=== PATIENT | male | born 1970 | race African-American/Black ===

== ENCOUNTER 2020-04-25 17:37 | Emergency (ER) | payer MEDICAID, OTHER ==
[~2020-04-25] VITALS: Ht 182.9 cm; Wt 78.0 kg
[~2020-04-25 17:37] MED LIST: ABIL5 MT
[2020-04-25 18:41] LABS: BASOPHILS % 0.3 % (0.0-2.0); EOSINOPHILS % 0.9 % (0.0-5.0); HEMATOCRIT. 36.4 % (42.0-52.0); HEMOGLOBIN. 12.7 g/dL (14.0-18.0); LYMPHOCYTES % 25.6 % (20.0-50.0); MEAN CORPUSCULAR HEMOGLOBIN 30.9 pg (28.0-32.0); MEAN CORPUSCULAR VOLUME 88.8 fL (80.0-94.0); MEAN PLATELET VOLUME 7.1 fl (7.4-10.4); MONOCYTES % 7.8 % (2.0-8.0); NEUTROPHILS % 65.4 % (40.0-76.0); PLATELET 354 x1000/uL (130-400); RED CELL DISTRIBUTION WIDTH 15.1 % (11.6-14.6)
[2020-04-25 18:47] LABS: CHLORIDE 104 mEq/L (98-107)
[2020-04-25 20:43] VITALS: BP 135/82
== END 2020-04-25 20:56 | disposition home or self-care (01) ==
LOC: ER 17:37
DX: R07.89 Other chest pain (principal); R03.0 Elevated blood-pressure reading, without diagnosis of hypertension
CPT/HCPCS: 36415; 71045; 80053; 83880; 84484; 85025; 93005; 99285

== ENCOUNTER 2023-07-19 10:16 | Emergency (ER) | payer MEDICAID ==
[~2023-07-19] VITALS: Ht 172.7 cm; Wt 88.6 kg
[~2023-07-19 10:16] MED LIST changes: +IBUP-2029 MT
[2023-07-19 10:39] VITALS: O2SAT 98
[2023-07-19 14:15] VITALS: BP 141/58; PULSE 93; RESP 18; TEMP 98.3
== END 2023-07-19 14:20 | disposition home or self-care (01) ==
LOC: ER 12:39
DX: M25.512 Pain in left shoulder (principal); M79.671 Pain in right foot
CPT/HCPCS: 73030; 73620; 99284